=== PATIENT | female | born 1995 | race Caucasian/White ===

== ENCOUNTER 2017-05-08 13:54 | Inpatient (IN) | payer OTHER ==
[~2017-05-08] VITALS: Ht 157.5 cm; Wt 98.0 kg
[2017-05-08] VITALS (16 sets, daily range): BP systolic 122–166; BP diastolic 63–98
[~2017-05-08 13:54] MED LIST: ASPI1TAB PO; GLYB3TA PO; METF10004 PO; PRENTAB55 PO; ZOLO25TA PO
[2017-05-08 15:21] LABS: MEAN CORPUSCULAR HEMOGLOBIN 25.5 pg (27.0-33.0); MEAN CORPUSCULAR HGB CONC 32.1 g/dl (32.0-36.5); MEAN CORPUSCULAR VOLUME 79.5 fl (80.0-96.0); PLATELET COUNT, AUTOMATED 253 10^3/uL (150-450); RED CELL DISTRIBUTION WIDTH 14.1 % (11.5-14.5); WHITE BLOOD COUNT 11.4 10^3/uL (4.0-10.0)
[2017-05-08 15:50] LABS: ALT/SGPT 15 U/L (12-78); AST/SGOT 16 U/L (7-37); BILIRUBIN,TOTAL 0.5 MG/DL (0.2-1.0); CREATININE FOR GFR 0.41 MG/DL (0.55-1.02); GLOMERULAR FILTRATION RATE > 60.0 (>60); URIC ACID 5.6 MG/DL (2.6-6.0)
[2017-05-08] MEDS ORDERED: LR 1,000 ML IV SCH ×2 (16:50→21:45)
[2017-05-08] MEDS ORDERED: BICITRA 30ML SOLN UDC PO ONE (17:00)
--- NOTE | 2017-05-08 17:49 | HPEPDOC ---
Obstetrical History & Physical General Date of Admission May 08, 2017 at 16:48 History of Present Illness 21 y/o at 38+3 per prior facility DOMINGO determination with less urine outout and seeing flashes in vision, has a h/o pre-e with first baby at 36 weeks, came in to be ruled out. No MELTON. No LOF/VB/ctx's. Pos FM. BP's were intermitently normal but also 141/95, 149/91, 142/98. Her CBC and Pre-E pnl were nl but her Pr/Cr was 0.42. Prob list: -T2DM, pt state blood sugars have been WNL the last 2 weeks, is on glyburide and metformin 1000 bid, however a known h/o the last 1-2 months of not bringing her glucose log to appt's (noncompliance). 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 No deficits since and had a nl echo this in , report in chart. Also nl echo other than mild ductal restriction. report in chart. Uses ABX for endocarditis prophylaxis with procedures. No isues with first or or postop period. -Severe scoliosis c rods in back in 2003-unable to have a spinal or epidural anesthesia, Had GETA with in 2016. -H/O Pre-E at 36 weeks with first preg in 2016 -Depression well controlled on Zoloft -CHTN although BP's have been nl in until today. 24 hr UP showed a nl Cr clearance of 139 ml/min 27SEP 24 hr UP 183 mg, nl Pre-E serum labs. 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: No pertinent history Past Medical History Medical History see Prob list above Surgical History: section, Tonsilectomy, Other (Back surgery 2003, coarct repair 2003) Family History Significant Family History: No pertinent family hx Social History Social history denies issues Marital Status: Family situation: Spouse/partner home Psychosocial History: No pertinent psych hx * Smoker: non-smoker Alcohol: Denies Drugs: denies Abuse Violence Screening Have you been hit/kicked/slapp: No Have you been sexually assault: No Imunizations Tdap status: current Allergies Coded Allergies: No Known Allergies (Unverified , 05/05/17) Medications Scheduled Aspirin (Aspirin 81) 81 Mg Tab, 162 MG PO DAILY Glyburide (Glyburide Micronized) 3 Mg Tab, 3 MG PO DAILY Metformin Hydrochloride (Metformin HCl) 1,000 Mg Tab, 1,000 MG PO BID Multivitamins/ ( 19) 1 Tab Tab, 1 TAB PO DAILY Sertraline Hcl (Zoloft) 25 Mg Tab, 25 MG PO DAILY Physical Examination Physical Examination GENERAL: Alert and oriented times three. BREAST: . ABDOMEN: Gravid and non-tender to touch. FETUS: Is vertex (VTX) by sterile vaginal examination (SVE), Cx L/C. NST Cat 1 reassuring, irreg ctx's. HEART RATE: Regular rate and rhythm. LUNGS: Clear to auscultation (CTA). EXTREMITIES: No edema. No clonus. Vital Signs/I&O Vital Signs Date Time Temp Pulse Resp B/P (MAP) Pulse Ox O2 Delivery O2 Flow Rate FiO2 05/08/17 14:10 98.7 18 141/95 (110) Room Air Laboratory Data 24H LABS Laboratory Tests 2 05/08/17 15:13: Nucleated Red Blood Cells % (auto) 0.0, Glomerular Filtration Rate > 60.0, Creatinine 0.41L, Aspartate Amino Transf (AST/SGOT) 16, Alanine Aminotransferase (ALT/SGPT) 15, Lactate Dehydrogenase 141, Total Bilirubin 0.5, Uric Acid 5.6 05/08/17 15:26: Urine Random Creatinine 91.8, Urine Random Total Protein 38.4H CBC/BMP Laboratory Tests 05/08/17 15:13 Red Blood Count 4.98, Mean Corpuscular Volume 79.5 L, Mean Corpuscular Hemoglobin 25.5 L, Mean Corpuscular Hemoglobin Concent 32.1, Red Cell Distribution Width 14.1, Aspartate Amino Transf (AST/SGOT) 16, Alanine Aminotransferase (ALT/SGPT) 15, Lactate Dehydrogenase 141, Total Bilirubin 0.5, Uric Acid 5.6 Urine Culture: Other (neg UA only in late SEP{, no urine Cx on chart) Pertinent Laboratoy Data Blood Type: O+ RBC Antibody Screen: Negative HIV: Negative Hepatitis B: Negative Hepatitis C: Negative Rapid Plasma Reagin: Immune Rubella: Unknown (value of 10.5 only in [facility] records, repeated with admission ) Varicella: Immune Chlamydia/Gonorrhea: Negative Group B Streptococcus: Unknown Quad Screen Test: Declined Cystic Fibrosis: Declined Anatomy Ultrasound Ultrasound Date: Jan 28, 2017 Placenta Location: Anterior Normal Anatomy: Yes (but inad eval of spine) Placenta Previa: No Other Ultrasounds 3OCT nl limited anatomy and 47%ile Was noncompliant with scheduling the APR th scan Vaginal Examination Dilation: None Effacement: 0-30% Station: -5 Cervical Consistency: Firm Cervical Position: Posterior Presentation: Cephalic presentation Assessment Variability: Moderate Accelerations: Positive Decelerations: None Tocometer Contractions: Yes Frequency: irregular Duration: less than 60 seconds Assessment/Plan Assessment 21 y/o at 38+3 with pre-eclampsia without severe features. Prob list: -T2DM, pt state blood sugars have been WNL the last 2 weeks, is on glyburide and metformin 1000 bid, however a known h/o the last 1-2 months of not bringing her glucose log to appt's (noncompliance). Ophtho exam nl in NOV, TSH nl 25SEP (2.34), 25SEP A1C 6.18%, A1C 7.3%. Plan on postop QID blood suagrs while admitted. -Congenital heart defect (coarct of aorta) s/p corrective surgery in 2003 age 7. No deficits since and had a nl echo this in , report in chart. Also nl echo other than mild ductal restriction. report in chart. Uses ABX for endocarditis prophylaxis with procedures. No isues with first or or postop period. SBE prophy with Ancef -Severe scoliosis c rods in back in 2003-unable to have a spinal or epidural anesthesia, Had GETA with in 2016. GETA, d/w Dr Ramos already this evening. -H/O Pre-E at 36 weeks with first preg in 2016. Delivery should suffice, if develops severe fetures, will use Mag Sulfate -Depression well controlled on Zoloft. -CHTN although BP's have been nl in until today. 24 hr UP showed a nl Cr clearance of 139 ml/min 27SEP 24 hr UP 183 mg, nl Pre-E serum labs. -Transfer to us at 24 weeks -Last baby ASA yesterday, will notify anesthesia of potential PLT issue -Prior in 2016 (GETA due to rods in back). ERCS this evening at ~ 2000 after anesthesia is available (in a case currently) Plan Admit and orient. Counseled and consented Group B Streptococcus (GBS) unk Labs and intravenous (IV) per unit protocol. Will need a checm7, rubella and HBSAG for reporting purposes and to be thorough ([facility] paperwork not perfectly clear) Judicious fluid mgmtr due to dx of Pre-E and also coarct repair Dr Orona to assist Sessions MD SESSIONS,ARSLAN Feldman MD May 08, 2017 17:49
[2017-05-08 18:09] LABS: ANION GAP 11 MEQ/L (8-16); BLOOD UREA NITROGEN 10 MG/DL (7-18); CALCIUM LEVEL 8.9 MG/DL (8.5-10.1); CARBON DIOXIDE LEVEL 21 MEQ/L (21-32); CHLORIDE LEVEL 106 MEQ/L (98-107); CREATININE FOR GFR 0.42 MG/DL (0.55-1.02); GLOMERULAR FILTRATION RATE > 60.0 (>60); GLUCOSE, FASTING 58 MG/DL (70-105); POTASSIUM SERUM 4.1 MEQ/L (3.5-5.1); SODIUM LEVEL 138 MEQ/L (136-145)
[2017-05-08] MEDS ORDERED: PROPOFOL 200 MG/20 ML VIAL As Ordered ONE ×3 (19:51→20:52)
[2017-05-08] MEDS ORDERED: LIDOCAINE 2% INJ 100 MG/5 ML SDV (FOR ANES.) As Ordered ONE (19:52)
[2017-05-08] MEDS ORDERED: OXYTOCIN INJ 10 UNITS/ML VIAL (J2590) As Ordered ONE (19:53)
[2017-05-08] MEDS ORDERED: MORPHINE PRES-FREE INJ 10 MG/10 ML VIAL (J2274) As Ordered ONE (19:56)
[2017-05-08] MEDS ORDERED: ONDANSETRON 4MG/2ML VIAL (J2405) As Ordered ONE (20:38)
[2017-05-08] MEDS ORDERED: MEASLES,MUMPS,RUBELLA VACCINE INJ (MMR-II) (90707) SC SCH (21:30)
[2017-05-08] MEDS ORDERED: RHOGAM 300 MCG (1500 IU) INJ (J2790) IM SCH (21:30)
[2017-05-08] MEDS: fentaNYL 100 MCG/2 ML INJECTION (J3010) IV PRN ×2 (21:42→22:00)
[2017-05-08] MEDS ORDERED: PERCOCET 5MG/325MG TAB PO PRN (21:45)
[2017-05-08] MEDS ORDERED: MEPERIDINE INJ 25 MG/ML VIAL (J2175) IV PRN (21:45)
[2017-05-08] MEDS ORDERED: HYDROmorphone HCL 1 MG/ML SYRINGE (J1170) IV PRN (21:45)
[2017-05-08] MEDS ORDERED: ONDANSETRON 4MG/2ML VIAL (J2405) IV PRN (21:45)
[2017-05-08] MEDS ORDERED: NALBUPHINE HCL 10 MG/ML AMP (J2300) IV PRN (21:45)
[2017-05-08] MEDS ORDERED: diphenhydrAMINE INJ 50MG/ML VIAL (J1200) IV PRN (21:45)
[2017-05-08] MEDS: KETOROLAC 30 MG/ML VIAL (J1885) IV SCH (23:04)
[2017-05-08] MEDS: LR 1,000 ML IV SCH (23:04)
[2017-05-09 00:05] VITALS: BP 137/94
[2017-05-09 01:05] VITALS: BP 144/93
[2017-05-09] MEDS: PERCOCET 5MG/325MG TAB PO PRN ×3 (01:56→21:58)
[2017-05-09] MEDS: KETOROLAC 30 MG/ML VIAL (J1885) IV SCH ×3 (04:34→16:52)
[2017-05-09 05:48] VITALS: BP 138/76
[2017-05-09 07:03] LABS: MEAN CORPUSCULAR HEMOGLOBIN 25.2 pg (27.0-33.0); MEAN CORPUSCULAR HGB CONC 31.5 g/dl (32.0-36.5); MEAN CORPUSCULAR VOLUME 80.1 fl (80.0-96.0); PLATELET COUNT, AUTOMATED 208 10^3/uL (150-450); RED CELL DISTRIBUTION WIDTH 14.2 % (11.5-14.5)
--- NOTE | 2017-05-09 07:52 | IPNPDOC ---
Text Note Date of Service The patient was seen on 05/09/17. NOTE POD1 prog note s/p yest AM States feeling well, no complaints. No heavy VB. Pain controlled. Ambulatory already. Baby in NICU due to oxygenation issues. VSSAF CTAB RRR Ut at U-2, firm Ext no [employer] CDI UO adeq This AM HCT 32.7 a/p: Doing well. D/C valdivia now and routine postop care. Likely d/c not until WED due to BS monitoring, visiting the NICU, etc Sessions MD MILLAN,Rodrigo, I+O VS, Rodrigo, I+O Laboratory Tests 05/08/17 15:13 Red Blood Count 4.98, Mean Corpuscular Volume 79.5 L, Mean Corpuscular Hemoglobin 25.5 L, Mean Corpuscular Hemoglobin Concent 32.1, Red Cell Distribution Width 14.1, Calcium Level 8.9, Aspartate Amino Transf (AST/SGOT) 16 , Alanine Aminotransferase (ALT/SGPT) 15, Lactate Dehydrogenase 141, Total Bilirubin 0.5, Uric Acid 5.6 05/09/17 06:46 Red Blood Count 4.08, Mean Corpuscular Volume 80.1, Mean Corpuscular Hemoglobin 25.2 L, Mean Corpuscular Hemoglobin Concent 31.5 L, Red Cell Distribution Width 14.2 Vital Signs Date Time Temp Pulse Resp B/P (MAP) Pulse Ox O2 Delivery O2 Flow Rate FiO2 05/09/17 06:03 16 05/09/17 05:48 96.4 87 138/76 (96) 95 Room Air 05/08/17 22:05 2 SESSIONS,ARSLAN Feldman MD May 09, 2017 07:52
[2017-05-09] MEDS: DOCUSATE SODIUM 100 MG CAP PO SCH ×2 (08:42→21:57)
[2017-05-09] MEDS: PRENATAL VITAMINS CHEWABLE TABLET PO SCH (08:42)
[2017-05-09] MEDS: metFORMIN (GLUCOPHAGE) 1000 MG TABLET PO SCH ×2 (08:42→16:52)
[2017-05-09] MEDS ORDERED: PRENATAL VITAMINS CHEWABLE TABLET PO SCH (09:00)
[2017-05-09 10:00] VITALS: BP 136/76
[2017-05-09 14:00] VITALS: BP 146/89
[2017-05-09] MEDS: SIMETHICONE 80 MG CHEW TAB PO PRN (14:53)
[2017-05-09 18:00] VITALS: BP 144/90
[2017-05-10] MEDS: LR 1,000 ML IV SCH ×2 (00:06→13:26)
[2017-05-10] MEDS: IBUPROFEN 800 MG TAB PO SCH ×3 (00:10→15:47)
[2017-05-10] MEDS: PERCOCET 5MG/325MG TAB PO PRN ×2 (02:20→15:48)
[2017-05-10] MEDS: SIMETHICONE 80 MG CHEW TAB PO PRN (02:20)
[2017-05-10 06:00] VITALS: BP 136/79
--- NOTE | 2017-05-10 08:08 | IPNPDOC ---
Text Note Date of Service The patient was seen on 05/10/17. NOTE POD2 prog note s/p 2 nights ago with T2DM States feeling well, no complaints. No heavy VB. Pain controlled. Ambulatory. Baby in NICU due to oxygenation issues. Blood sugars Yest: Fasting low 100's (cannot find it in the record, memory) PPB 219 (after this significantly adjusted her diet) PPL: 132 PPD: 97 Today: Fasting 124 VSSAF CTAB RRR Ut at U-2, firm Ext no [employer] CDI UO adeq Yest AM HCT 32.7 a/p: Doing somewhat better with glycemic control. Routine postop care. Likely d/c tomorrow due to BS monitoring. Matcher Offbearer to see her today and discuss appropriate diet, discharge planning. Sessions VS,Rodrigo, I+O VSRodrigo, I+O Vital Signs Date Time Temp Pulse Resp B/P (MAP) Pulse Ox O2 Delivery O2 Flow Rate FiO2 05/10/17 06:00 98.4 77 18 136/79 (98) 05/10/17 02:20 Room Air 05/09/17 18:00 98 05/08/17 22:05 2 SESSIONS,ARSLAN Feldman MD May 10, 2017 08:07
[2017-05-10] MEDS: DOCUSATE SODIUM 100 MG CAP PO SCH (09:04)
[2017-05-10] MEDS: PRENATAL VITAMINS CHEWABLE TABLET PO SCH (09:05)
[2017-05-10] MEDS: metFORMIN (GLUCOPHAGE) 1000 MG TABLET PO SCH ×2 (09:05→17:17)
[2017-05-10] MEDS: SERTRALINE HCL 25 MG TABLET PO SCH (11:55)
--- NOTE | 2017-05-10 15:49 | RO ---
DATE OF PROCEDURE: 05/08/2017 PREOPERATIVE DIAGNOSES: Pre-eclampsia without severe features, prior , 38 weeks 4 days. POSTOPERATIVE DIAGNOSES: Pre-eclampsia without severe features, prior , 38 weeks 4 days. PROCEDURE: SURGEON: Hayder Gallagher MD CATCH BASIN CLEANER: Dr. Dru Orona ANESTHESIA: General endotracheal after failed spinal times three. ESTIMATED BLOOD LOSS: 500 mL. DRAINS: 200 mL in the Yin catheter at the end of the procedure. FLUIDS REPLACED: 1000 mL of D5 lactated Ringer's. PREOPERATIVE ANTIBIOTICS: Ancef 2 grams IV. FINDINGS: Prefascial scar tissue significant with very little intraperitoneal scar tissue, 2.5 minutes from skin to baby delivery, female, 3334 grams, 7 pounds 6 ounces, scores 5, 8, 8, 9 with clear fluid. INDICATION: Patient came to triage stating that she was urinating much less than she was used to and also seeing significant bright spots in her vision. She had a history of pre-eclampsia in her previous at 36 weeks and delivery. Her plan was to undergo elective repeat delivery later this week. She was noted to be intermittently hypertensive (mild range), and a full workup was performed, including nonstress tests, serial blood pressures, and a urine protein to creatinine ratio with a complete blood count (CBC) and a pre-eclampsia profile. All was normal other than her protein to creatinine ratio, which was noted to be 0.42. With the intermittent blood pressure issues and the significant amount of protein in her urine and her symptoms, she was diagnosed with pre-eclampsia without severe features and delivery was indicated. Informed consent was obtained, and anesthesia was told about our plan for general endotracheal as due to her history of scoliosis repair with Dodd rods, her first delivery required general endotracheal and this is what she was expecting. Dr. Ramos very much wanted to try a spinal anesthetic, thus avoiding the risks of general endotracheal anesthesia in term , and the patient agreed. DESCRIPTION OF THE OPERATION: Patient was taken to the operating room with two IVs in place, and a spinal attempt was made times three, never successful. It was then decided to undergo a general endotracheal anesthesia via GlideScope; please see their notes for all details. The patient was Yin catheterized and prepped and draped, completely awake. Dr. Orona and I were ready to begin the rapid sequence delivery as soon as anesthesia confirmed the appropriate placement of the endotracheal airway. This was done without difficulty and as soon as they confirmed the presence of the appropriate placement, a Pfannenstiel skin incision was carried down over her prior incision to the layer of the fascia, which was nicked in the midline; and a fascial rip technique bilaterally created an adequate fascial window. Gretchen clamps were placed superiorly and inferiorly. The underlying rectus muscles were quickly dissected off sharply. The rectus muscles were . The peritoneum was breeched with the surgeon's digit, and this revealed no significant intraperitoneal scar tissue. Bladder blade was quickly placed and a bladder flap was easily created, and a low transverse uterine incision with clear fluid was performed. Incision to baby delivery was approximately 2-1/2 minutes. The was easily delivered through the incision after flexing the head and with fundal pressure. was noted to be slightly sedated, and the waiting intensive care unit (NICU) team, including Dr. Kamara, took over the care of the baby. Cord blood was obtained. The uterus was massaged, Pitocin was started, and the placenta was delivered under traction. The uterus was delivered through the incision, wrapped in warm sponge, and two dry sponges then used to clear the uterine cavity of all clots, debris, and membranes. A running suture from left to right was performed with #0 Vicryl in locked fashion without difficulty, and hemostasis was noted. #0 Monocryl was then used to imbricate the incision with good effect. The fallopian tubes and ovaries were normal. Uterus was then returned to its anatomical state and, once again, hemostasis was confirmed using a large Rich for the skin and a bladder blade for the vesicouterine peritoneum. The peritoneum was closed with a running #2-0 Vicryl, the rectus bellies were inspected and found to be hemostatic, and the fascia was then closed with a running #0 Vicryl from left to right. The subcutaneous tissue was copiously irrigated, made to be hemostatic, and closed with a #2-0 running Vicryl. The skin was closed with a #4-0 Monocryl in subcuticular fashion from left to right. Steri-Strips were placed over the incision. A pressure dressing was then placed over the incision. The patient's legs were frogged. The uterus was at U-2 and firm on bimanual exam, and a small amount of clots and debris was removed from the vagina and cervix. All counts were correct times three, including sponge, needle, and instruments.
[2017-05-10 19:23] VITALS: BP 160/94
[2017-05-10 19:45] VITALS: BP 160/92
[2017-05-10 22:10] VITALS: BP 182/88
[2017-05-11] VITALS (7 sets, daily range): BP systolic 140–176; BP diastolic 78–96
[2017-05-11] MEDS: DOCUSATE SODIUM 100 MG CAP PO SCH ×3 (00:21→21:00)
[2017-05-11] MEDS: PERCOCET 5MG/325MG TAB PO PRN ×2 (00:21→07:46)
[2017-05-11] MEDS: IBUPROFEN 800 MG TAB PO SCH ×3 (00:22→16:11)
[2017-05-11] MEDS: LR 1,000 ML IV SCH ×2 (02:46→16:05)
[2017-05-11] MEDS: PRENATAL VITAMINS CHEWABLE TABLET PO SCH (07:46)
[2017-05-11] MEDS: metFORMIN (GLUCOPHAGE) 1000 MG TABLET PO SCH ×2 (07:47→18:08)
[2017-05-11] MEDS: SERTRALINE HCL 25 MG TABLET PO SCH (07:47)
--- NOTE | 2017-05-11 08:48 | IPNPDOC ---
Text Note Date of Service The patient was seen on 05/11/17. NOTE POD3 prog note s/p 2 nights ago with T2DM States feeling well, no complaints. No heavy VB. Pain controlled. Ambulatory. Baby in NICU and doing well. Pumping/breast feeding. Blood sugars Yest: Fasting 124 PPB 125 PPL: 113 PPD: 108 Fasting today: 100 VSSAF CTAB RRR Ut at U-3, firm Ext no [employer]CE Inc CDI a/p: Doing better with glycemic control after airframe technician consultation yesterday. Will add Labetalol 200 BID and cont routine postop care. Likely d/ c tomorrow due to BP/BS monitoring. Sessions VS,Rodrigo, I+O VSRodrigo, I+O Vital Signs Date Time Temp Pulse Resp B/P (MAP) Pulse Ox O2 Delivery O2 Flow Rate FiO2 05/11/17 07:46 16 Room Air 05/11/17 05:59 98.7 88 152/88 (109) 99 05/08/17 22:05 2 SESSIONS,ARSLAN Feldman MD May 11, 2017 08:48
[2017-05-11] MEDS: LABETALOL 200 MG TAB PO SCH ×2 (09:13→21:19)
[2017-05-12] MEDS: IBUPROFEN 800 MG TAB PO SCH ×2 (00:07→08:17)
[2017-05-12 02:00] VITALS: BP 138/82
[2017-05-12] MEDS: PERCOCET 5MG/325MG TAB PO PRN (02:59)
[2017-05-12] MEDS: LR 1,000 ML IV SCH (05:26)
[2017-05-12 06:00] VITALS: BP 138/88
--- NOTE | 2017-05-12 06:27 | IPNPDOC ---
Text Note Date of Service The patient was seen on 05/12/17. NOTE POD4 prog note s/p , with T2DM and PP BP issues States feeling well, no complaints. No heavy VB. Pain controlled. Ambulatory. Baby in NICU and doing well. Pumping/breast feeding. Blood sugars Yest: Fasting 100 PPB 127 PPL: 127 PPD: 125 Fasting today: 97 VSSAF, 1800 BP severe range but repeated immediately with a manual cuff and mild range only, nl or mild range throughout the night/AM CTAB RRR Ut at U-3, firm Ext no [employer]CE [employer] CDI a/p: Doing better with glycemic control after management rep consultation and Labetalol 200 BID working well for her. Stable for d/c. Sessions VS,Rodrigo, I+O VSRodrigo, I+O Vital Signs Date Time Temp Pulse Resp B/P (MAP) Pulse Ox O2 Delivery O2 Flow Rate FiO2 05/12/17 06:00 98.7 79 17 138/88 (105) 17 Room Air 05/08/17 22:05 2 SESSIONS,ARSLAN Feldman MD May 12, 2017 06:27
--- NOTE | 2017-05-12 06:33 | DS.PDOC ---
Discharge Summary General Date of Admission May 08, 2017 at 16:48 Date of Discharge [id number] Discharge Summary Discharge Summary Admission Diagnosis: Pre-Eclampsia without severe features and prior Type 2 Diabetes Discharge Diagnosis: s/p uncomplicated delivery, see operative note Condition: stable Meds on discharge: Motrin, Lanolin, Percocet, Colace, Nor QD, Labetalol 200 mg BID Hospital Course: Pt is a 21 y/o female admitted with new diagnosis of Pre- Eclampsia based on BP's and proteinuria. Uncomplicated . Please see operative note for details. to NICU for respiratory issues. On POD#2, saw a screen printer helper and had a vast improvement in her blood sugars thereafter. On POD#3, the pt had severe range BP's and Labetalol was added. On POD#4, the pt was tolerating reg diet, ambulating, pain was well controlled, and had minimal lochia and stable BP's. She was desirous of discharge and was discharged home with follow up in 1-2 and 6-8wks in OB clinic. Home recommendations: Nothing in vagina for 6 weeks, no bathing for 4 weeks, no driving for 2 weeks. Vital Signs/I&Os Vital Signs Date Time Temp Pulse Resp B/P (MAP) Pulse Ox O2 Delivery O2 Flow Rate FiO2 05/12/17 06:00 98.7 79 17 138/88 (105) 17 Room Air 05/08/17 22:05 2 Laboratory Data Labs 24H Laboratory Tests 2 05/11/17 10:46: Bedside Glucose (Misc Panel) 127H 05/11/17 15:17: Bedside Glucose (Misc Panel) 127H 05/11/17 20:06: Bedside Glucose (Misc Panel) 125H 05/12/17 06:02: Bedside Glucose (Misc Panel) 87 FSBS Laboratory Tests Test 05/11/17 10:46 05/11/17 15:17 05/11/17 20:06 05/12/17 06:02 Range/Units Bedside Glucose (Misc Panel) 127 127 125 87 70-105 MG/DL Discharge Medications Scheduled Aspirin (Aspirin 81) 81 Mg Tab, 162 MG PO DAILY, (Reported) Glyburide (Glyburide Micronized) 3 Mg Tab, 3 MG PO DAILY, (Reported) Metformin Hydrochloride (Metformin HCl) 1,000 Mg Tab, 1,000 MG PO BID, (Reported ) Multivitamins/ ( 19) 1 Tab Tab, 1 TAB PO DAILY, (Reported) Sertraline Hcl (Zoloft) 25 Mg Tab, 25 MG PO DAILY, (Reported) Allergies Coded Allergies: No Known Allergies (Unverified , 05/05/17) SESSIONS,ARSLAN Feldman MD May 12, 2017 06:33
[2017-05-12] MEDS: metFORMIN (GLUCOPHAGE) 1000 MG TABLET PO SCH (07:28)
[2017-05-12] MEDS: PRENATAL VITAMINS CHEWABLE TABLET PO SCH (08:16)
[2017-05-12 08:17] VITALS: BP 138/90
[2017-05-12] MEDS: LABETALOL 200 MG TAB PO SCH (08:17)
[2017-05-12] MEDS: SERTRALINE HCL 25 MG TABLET PO SCH (08:17)
[2017-05-12] MEDS: DOCUSATE SODIUM 100 MG CAP PO SCH (08:17)
[2017-05-12] MEDS ORDERED: COLA100C5 PO (09:07)
[2017-05-12] MEDS ORDERED: MOTR200T44 PO (09:07)
[2017-05-12] MEDS ORDERED: SIME180C PO (09:07)
[2017-05-12] MEDS ORDERED: PERCOCET PO (09:07)
== END 2017-05-12 10:40 | disposition home or self-care (01) | DRG 766 ==
LOC: M LDO 13:54 → M LDI 16:48 → M OBS 22:23
PROVIDERS: ADMIT Obstetrics & Gynecology; ATTEND Obstetrics & Gynecology
PROC: 10D00Z1 Extraction of Products of Conception, Low, Open Approach (ICD-10-PCS; principal; 2017-05-08 21:04)
DX: O11.4 Pre-existing hypertension with pre-eclampsia, complicating childbirth (principal); O24.12 Pre-existing type 2 diabetes mellitus, in childbirth; E11.9 Type 2 diabetes mellitus without complications; Z3A.38 38 weeks gestation of pregnancy; O34.211 Maternal care for low transverse scar from previous cesarean delivery; F32.9 Major depressive disorder, single episode, unspecified; O10.02 Pre-existing essential hypertension complicating childbirth; O99.344 Other mental disorders complicating childbirth; Z87.74 Personal history of (corrected) congenital malformations of heart and circulatory system; Z37.0 Single live birth; Z79.84 Long term (current) use of oral hypoglycemic drugs; Z96.698 Presence of other orthopedic joint implants

== ENCOUNTER 2017-05-14 22:35 | Emergency (ER) | payer OTHER ==
[~2017-05-14] VITALS: Ht 157.5 cm; Wt 96.8 kg
[~2017-05-14 22:35] MED LIST changes: +COLA100C5 PO; +MOTR200T44 PO; +PERCOCET PO; +SIME180C PO
[2017-05-14] MEDS ORDERED: LABE20TAB PO (22:54)
[2017-05-14] MEDS ORDERED: LABETALOL HCL 100 MG/20 ML VIAL IV STA (23:25)
--- NOTE | 2017-05-15 | REPUSA ---
CT of the head Clinical history: Headache. Technique: Multiple axial CT images were obtained through the head without administration of contrast . Findings: The ventricles and sulci are symmetric bilaterally. There is no evidence of acute hemorrhag e or infarct. There is no midline shift, mass effect, or extra-axial fluid collection. The osseous st ructures are unremarkable. The visualized paranasal sinuses and mastoid air cells are clear. Impression: Negative study.
[2017-05-15 00:12] LABS: BASO # 0.1 10^3/uL (0.0-0.2); BASO % 0.5 % (0.0-1.0); EOS # 0.3 10^3/uL (0.0-0.50); EOS % 2.9 % (0.0-3.0); IMMATURE GRANULOCYTE % 0.7 % (0-0); LYMPH % 31.5 % (24.0-44.0); MEAN CORPUSCULAR HEMOGLOBIN 25.5 pg (27.0-33.0); MEAN CORPUSCULAR HGB CONC 30.9 g/dl (32.0-36.5); MEAN CORPUSCULAR VOLUME 82.4 fl (80.0-96.0); MONO # 0.6 10^3/uL (0.0-0.8); MONO % 6.2 % (0.0-5.0); NEUTROPHILS # 5.6 10^3/uL (1.8-7.7); NEUTROPHILS % 58.2 % (36.0-66.0); PLATELET COUNT, AUTOMATED 291 10^3/uL (150-450); RED CELL DISTRIBUTION WIDTH 14.8 % (11.5-14.5); WHITE BLOOD COUNT 9.7 10^3/uL (4.0-10.0)
[2017-05-15 00:17] VITALS: BP 210/99
[2017-05-15 00:32] LABS: ALBUMIN 2.5 GM/DL (3.2-5.2); ALBUMIN/GLOBULIN RATIO 0.71 (1.00-1.93); ALKALINE PHOSPHATASE 100 U/L (45-117); ALT/SGPT 23 U/L (12-78); ANION GAP 9 MEQ/L (8-16); AST/SGOT 17 U/L (7-37); BILIRUBIN,DIRECT 0.2 MG/DL (0.0-0.2); BILIRUBIN,TOTAL 0.4 MG/DL (0.2-1.0); BLOOD UREA NITROGEN 19 MG/DL (7-18); CALCIUM LEVEL 8.3 MG/DL (8.5-10.1); CARBON DIOXIDE LEVEL 26 MEQ/L (21-32); CHLORIDE LEVEL 107 MEQ/L (98-107); CREATININE FOR GFR 0.53 MG/DL (0.55-1.02); GLOMERULAR FILTRATION RATE > 60.0 (>60); GLUCOSE, FASTING 113 MG/DL (70-105); POTASSIUM SERUM 3.9 MEQ/L (3.5-5.1); SODIUM LEVEL 142 MEQ/L (136-145)
[2017-05-15 00:33] LABS: INR 0.91
[2017-05-15 01:43] VITALS: BP 167/80
[2017-05-15] MEDS ORDERED: IBUP1TAB7 PO (01:45)
[2017-05-15] MEDS ORDERED: MAG Sulf (OBGYN) 20GM/500ML 20,000 MG in APPROPRIATE DILUENT 1 EA IV SCH (02:16)
[2017-05-15] MEDS ORDERED: LABETALOL HCL 100 MG/20 ML VIAL IV ONE (02:30)
[2017-05-15] MEDS ORDERED: MAG Sulf (L&D) 4 GM/100 ML 4 GM in APPROPRIATE DILUENT 1 EA IV ONE (02:30)
--- NOTE | 2017-05-15 12:56 | REP ---
CHEST, TWO VIEWS: Two views of the chest are performed. There are no prior studies for comparisons. There is no evidence of acute infiltrate or pulmonary edema. There is mild cardiomegaly. Dodd rods are seen along the thoracic spine. There is curvature of the thoracic spine convex to the left. IMPRESSION: No acute infiltrate. Mild cardiomegaly. Signed by Hayder Chaves MD 05/15/2017 05:36 P
--- NOTE | 2017-05-15 21:39 | ECGEPIP ---
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
== END 2017-05-15 01:29 | disposition other institution (70) ==
LOC: M ED 22:35 → UNDOADMIN 05-15 01:29 → M ED INP 05-15 01:29 → M ED 05-15 01:29 → UNDODISIN 05-15 01:49
DX: O14.95 Unspecified pre-eclampsia, complicating the puerperium (principal); E11.9 Type 2 diabetes mellitus without complications; Z87.891 Personal history of nicotine dependence; Z79.84 Long term (current) use of oral hypoglycemic drugs; Z79.899 Other long term (current) drug therapy; Z98.890 Other specified postprocedural states

== ENCOUNTER 2017-05-15 02:00 | Inpatient (IN) | payer OTHER ==
[2017-05-15] VITALS (43 sets, daily range): BP systolic 102–192; BP diastolic 52–105
[~2017-05-15] VITALS: Ht 157.5 cm; Wt 90.0 kg
[~2017-05-15 02:00] MED LIST changes: +IBUP1TAB7 PO; +LABE20TAB PO
[2017-05-15] MEDS ORDERED: LABETALOL HCL 100 MG/20 ML VIAL As Ordered ONE (02:29)
[2017-05-15] MEDS ORDERED: MAGNESIUM *L&D* 4 GM/100 ML BAG (40MG/ML) (J3475) As Ordered ONE (02:47)
[2017-05-15] MEDS ORDERED: MAGNESIUM SULFATE 4% INJ 20GM/500ML (40MG/ML) (J3475) As Ordered ONE (02:48)
[2017-05-15] MEDS ORDERED: LABETALOL HCL 100 MG/20 ML VIAL IV SCH (03:00)
[2017-05-15] MEDS ORDERED: MAG Sulf (L&D) 4 GM/100 ML 4 GM in APPROPRIATE DILUENT 1 EA IV ONE (03:15)
[2017-05-15] MEDS ORDERED: ACETAMINOPHEN 500 MG TAB As Ordered ONE (03:37)
[2017-05-15] MEDS: MAG Sulf (OBGYN) 20GM/500ML 20,000 MG in APPROPRIATE DILUENT 1 EA IV SCH ×2 (04:00→14:44)
[2017-05-15 06:57] LABS: MEAN CORPUSCULAR HEMOGLOBIN 25.5 pg (27.0-33.0); MEAN CORPUSCULAR HGB CONC 31.5 g/dl (32.0-36.5); PLATELET COUNT, AUTOMATED 289 10^3/uL (150-450); RED CELL DISTRIBUTION WIDTH 14.7 % (11.5-14.5)
[2017-05-15 07:22] LABS: ANION GAP 8 MEQ/L (8-16); BLOOD UREA NITROGEN 12 MG/DL (7-18); CALCIUM LEVEL 8.4 MG/DL (8.5-10.1); CARBON DIOXIDE LEVEL 25 MEQ/L (21-32); CHLORIDE LEVEL 109 MEQ/L (98-107); CREATININE FOR GFR 0.42 MG/DL (0.55-1.02); GLOMERULAR FILTRATION RATE > 60.0 (>60); GLUCOSE, FASTING 108 MG/DL (70-105); MAGNESIUM LEVEL 3.7 MG/DL (1.8-2.4); POTASSIUM SERUM 3.7 MEQ/L (3.5-5.1); SODIUM LEVEL 142 MEQ/L (136-145)
[2017-05-15] MEDS ORDERED: LR 1,000 ML IV SCH (07:30)
[2017-05-15] MEDS: LABETALOL 200 MG TAB PO SCH ×2 (09:03→21:02)
[2017-05-15] MEDS ORDERED: ACETAMINOPHEN 325 MG TAB PO PRN (20:00)
[2017-05-15] MEDS ORDERED: IBUPROFEN 800 MG TAB PO PRN (20:00)
[2017-05-15] MEDS ORDERED: ACETAMINOPHEN 500 MG TAB PO PRN (20:15)
[2017-05-16] VITALS (10 sets, daily range): BP systolic 130–175; BP diastolic 73–92
[2017-05-16] MEDS: MAG Sulf (OBGYN) 20GM/500ML 20,000 MG in APPROPRIATE DILUENT 1 EA IV SCH (00:53)
[2017-05-16] MEDS ORDERED: DOCUSATE SODIUM 100 MG CAP PO PRN (06:45)
[2017-05-16] MEDS: PRENATAL VITAMINS CHEWABLE TABLET PO SCH (09:04)
[2017-05-16] MEDS: metFORMIN (GLUCOPHAGE) 1000 MG TABLET PO SCH ×2 (09:05→17:30)
[2017-05-16] MEDS: SERTRALINE HCL 25 MG TABLET PO SCH (09:05)
[2017-05-16] MEDS: LABETALOL 200 MG TAB PO SCH ×2 (09:05→21:00)
[2017-05-17] VITALS (9 sets, daily range): BP systolic 124–163; BP diastolic 74–90
[2017-05-17 07:05] LABS: MEAN CORPUSCULAR HEMOGLOBIN 25.6 pg (27.0-33.0); MEAN CORPUSCULAR VOLUME 82.7 fl (80.0-96.0); PLATELET COUNT, AUTOMATED 334 10^3/uL (150-450); RED CELL DISTRIBUTION WIDTH 14.6 % (11.5-14.5); WHITE BLOOD COUNT 8.3 10^3/uL (4.0-10.0)
[2017-05-17] MEDS: PRENATAL VITAMINS CHEWABLE TABLET PO SCH (09:15)
[2017-05-17] MEDS: NIFEdipine 30 MG XL TAB PO SCH (09:16)
[2017-05-17] MEDS: metFORMIN (GLUCOPHAGE) 1000 MG TABLET PO SCH ×2 (09:16→17:38)
--- NOTE | 2017-05-17 09:16 | IPNPDOC ---
Progress Note Date of Service The patient was seen on 05/17/17 at 09:11. Progress Note Progress Note Renée is a 21y/o [id number] s/p 24hr IV MgSO4 after readmission for Severe range BPs/HAs. She feels well today with no complaints. Baby is now with her out of NICU and she is breast feeding. Ambulating/voiding spontaneously/tolerating regular diet without problems. Explicitly denies headache/vision changes/CP/ SOB. Last night RN called me informing me of severe range bp right before giving patient her PM labetalol (BID dosing)- I had her call me back 30 min later with repeat bp and it was no longer severe range. Renée never had symptoms during that time. O: Severe range bp last night, currently mild range, afebrile Gen: A&Ox3, NAD ABD: soft, NTTP, ND, Fundus@U-3 Ext: 2+ BLE DP/PT, neg homans BLE Assessment: Renée is a 21y/o [id number] s/p 24hr IV MgSO4 after readmission for Severe range BPs/HAs. Still working to reduce bp's though no longer symptomatic. Has been on BID 200mg Labetalol but last night dosing changed to TID with addition of nifedipine this morning. No s/sx of worsening pre-eclampsia. Mild range bp's this morning. Plan: - Continue routine care, no discharge today secondary to elevated bp' s last night - Today will observe bp's after going to labetalol 200mg TID dosing in addition to Nifedipine XL 30mg qam - Continue Metformin 1000mg bid/zoloft 25mg/PNV - Encourage breast feeding and ambulation Dr. Sherrill Devi MD [place] VS, I&O, 24H, [facility] Vital Signs/I&O Vital Signs Date Time Temp Pulse Resp B/P (MAP) Pulse Ox O2 Delivery O2 Flow Rate FiO2 05/17/17 06:00 98.9 66 17 142/88 (106) 96 Room Air Laboratory Data 24H LABS Laboratory Tests 2 05/17/17 06:37: Nucleated Red Blood Cells % (auto) 0.0 CBC/BMP Laboratory Tests 05/17/17 06:37 Red Blood Count 4.10, Mean Corpuscular Volume 82.7, Mean Corpuscular Hemoglobin 25.6 L, Mean Corpuscular Hemoglobin Concent 31.0 L, Red Cell Distribution Width 14.6 H Sherrill Devi MD May 17, 2017 09:16
[2017-05-17] MEDS: LABETALOL 200 MG TAB PO SCH ×2 (09:18→17:38)
[2017-05-17] MEDS: SERTRALINE HCL 25 MG TABLET PO SCH (09:18)
[2017-05-18] MEDS: LABETALOL 200 MG TAB PO SCH ×2 (01:00→09:00)
[2017-05-18 02:00] VITALS: BP 150/85
[2017-05-18 02:40] VITALS: BP 149/81
[2017-05-18 06:00] VITALS: BP 138/72
[2017-05-18] MEDS: PRENATAL VITAMINS CHEWABLE TABLET PO SCH (08:48)
[2017-05-18] MEDS: metFORMIN (GLUCOPHAGE) 1000 MG TABLET PO SCH (08:49)
[2017-05-18] MEDS: NIFEdipine 30 MG XL TAB PO SCH (08:49)
[2017-05-18] MEDS: SERTRALINE HCL 25 MG TABLET PO SCH (08:50)
[2017-05-18 09:00] VITALS: BP 138/70
[2017-05-18] MEDS ORDERED: PRENTAB9 PO (12:27)
[2017-05-18] MEDS ORDERED: VALT500T PO (12:30)
[2017-05-18 14:00] VITALS: BP 139/87
[2017-05-18 17:48] VITALS: BP 142/87
--- NOTE | 2017-05-18 22:48 | DSES ---
DATE OF ADMISSION: DATE OF DISCHARGE: 05/18/2017 This lady had an admission diagnosis of previous section 05/10/2017 with preeclampsia with not severe range blood pressures. She also has a history of depression on Zoloft and type 2 diabetes on metformin. She has had a known pre-eclampsia history with previous admission. DISCHARGE DIAGNOSIS: Previous section. Pre-eclampsia with readmission. Now she is in a stable blood pressure monitoring regime with adequate antihypertensives on board. She still is continuing using her Zoloft and using her metformin. She had counseling with dietitian in regards to her diet and prior to discharge we reviewed her medications, which are labetalol and nifedipine. We emphasized the importance of taking them at regular interval time and not missing a pill. She has wrist blood pressure assessment tool at home and we recommended she do her blood pressures 4 times a day, however, the regime is that she needs to sit down, be quiet for about 15 minutes, do her blood pressure. If it is in a severe range blood pressure which is 160/100, she is again to sit down, be quiet for about 15-20 minutes and then repeat the blood pressure. If she has had to severe range blood pressures she needs to call for us to evaluate either increasing the medication or have her return. She is discharged with 200 mg of labetalol three times a day and 30 mg of nifedipine extra strength. Her has gone to the pharmacy to purchase those. On reviewing her vital signs today over the past 24 hours, she has only had one severe range blood pressure this morning of 175/92. However, 15 minutes later it resolved down to a normalized blood pressure 143/74, 142/88. Reviewing her chemistry, all is within normal limit limits. Her magnesium levels were at the therapeutic range when she was on magnesium. The electrolytes were within normal limits. The urine was negative. Her hematology was within normal limits. Her platelets were normal and her glucose was in the normal range for her at 105. PHYSICAL EXAMINATION AT DISCHARGE: She is normocephalic, atraumatic. Neck: Full range of motions. Pupils equal and reactive to light. Her blood pressure presently is 142/87 with a pulse of 78, respirations 18 and temperature 97.6. Her distal pulses are symmetric. No evidence of deep venous thrombosis (DVT), pulmonary embolism (PE) or superficial phlebitis. Chest is clear to the bases. No wheezes or rhonchi. Abdomen is soft. Uterus 2 below. Lochia is moderate. Four quadrant bowel sounds are noted. She has no rashes, lesions or pruritus. No arthralgia or myalgia. No complaints of cough, wheezes, shortness of breath or dyspnea on exertion. No chest pain, not bleeding. Neuro complete. No urgency or frequency. No nausea, vomiting, diarrhea or constipation. SUMMARY: In summary we have a pre-eclampsia with severe range blood pressures being monitored and managed with medication and counseling as well as her diabetes monitored with metformin and diet counseling and her anxiety is under control with Zoloft. The patient was told to call the office for an appointment next week. Followup for blood pressure check and was discharged with medications in stable condition.
== END 2017-05-18 19:00 | disposition home or self-care (01) | DRG 776 ==
LOC: M LDI 02:00 → M OBS 19:04
PROVIDERS: ADMIT Obstetrics & Gynecology; ATTEND Student in an Organized Health Care Education/Training Program
DX: O14.15 Severe pre-eclampsia, complicating the puerperium (principal); O24.13 Pre-existing type 2 diabetes mellitus, in the puerperium; Z79.84 Long term (current) use of oral hypoglycemic drugs; E11.9 Type 2 diabetes mellitus without complications; O99.345 Other mental disorders complicating the puerperium; F32.9 Major depressive disorder, single episode, unspecified

== ENCOUNTER 2018-03-09 11:09 | Emergency (ER) | payer OTHER | END 2018-03-09 13:17 | disposition home or self-care (01) | LOC: M ED 11:09 | DX: R03.0 Elevated blood-pressure reading, without diagnosis of hypertension (principal); F41.9 Anxiety disorder, unspecified; F33.9 Major depressive disorder, recurrent, unspecified; Z79.899 Other long term (current) drug therapy | CPT/HCPCS: 71046 ==

== ENCOUNTER → 2018-04-24 | Outpatient (REF) | payer OTHER | LOC: M SFHCLERA 18:19 | DX: J02.9 Acute pharyngitis, unspecified (principal) ==

== ENCOUNTER 2018-05-21 16:11 | Emergency (ER) | payer OTHER ==
[2018-05-21 17:20] LABS: HEMATOCRIT 40.3 % (36.0-47.0); HEMOGLOBIN 12.9 g/dl (12.0-15.5); MEAN CORPUSCULAR HEMOGLOBIN 26.8 pg (27.0-33.0); MEAN CORPUSCULAR VOLUME 83.6 fl (80.0-96.0); PLATELET COUNT, AUTOMATED 279 10^3/uL (150-450); RED BLOOD COUNT 4.82 10^6/uL (4.00-5.40); RED CELL DISTRIBUTION WIDTH 13.5 % (11.5-14.5); WHITE BLOOD COUNT 10.2 10^3/uL (4.0-10.0)
[2018-05-21 17:36] LABS: AMPHETAMINES LEVEL URINE NEGATIVE (NEGATIVE); BARBITURATES URINE NEGATIVE (NEGATIVE); BENZODIAZEPINES URINE NEGATIVE (NEGATIVE); CANNABINOIDS URINE NEGATIVE (NEGATIVE); COCAINE METABOLITE URINE NEGATIVE (NEGATIVE); METHADONE URINE NEGATIVE (NEGATIVE); OPIATES URINE NEGATIVE (NEGATIVE); PHENCYCLIDINE URINE NEGATIVE (NEGATIVE)
[2018-05-21 17:46] LABS: CONTROL LINE HCG INT CTR LINE PRESENT; HCG, SERUM QUALITATIVE NEGATIVE (NEGATIVE)
[2018-05-21 17:47] LABS: ALBUMIN 3.5 GM/DL (3.2-5.2); ALBUMIN/GLOBULIN RATIO 0.95 (1.00-1.93); ALKALINE PHOSPHATASE 93 U/L (45-117); ALT/SGPT 17 U/L (12-78); ANION GAP 7 MEQ/L (8-16); AST/SGOT 14 U/L (7-37); BILIRUBIN,DIRECT < 0.1 MG/DL (0.0-0.2); BILIRUBIN,TOTAL 0.2 MG/DL (0.2-1.0); BLOOD UREA NITROGEN 16 MG/DL (7-18); CALCIUM LEVEL 8.3 MG/DL (8.5-10.1); CARBON DIOXIDE LEVEL 29 MEQ/L (21-32); CHLORIDE LEVEL 103 MEQ/L (98-107); CREATININE FOR GFR 0.54 MG/DL (0.55-1.30); GLOMERULAR FILTRATION RATE > 60.0 (>60); GLUCOSE, FASTING 135 MG/DL (70-100); SALICYLATE LEVEL < 1.7 MG/DL (5.0-30.0); SODIUM LEVEL 139 MEQ/L (136-145); TOTAL PROTEIN 7.2 GM/DL (6.4-8.2)
[2018-05-21 17:48] LABS: ACETAMINOPHEN LEVEL < 2.0 UG/ML (10.0-30.0); ETHYL ALCOHOL (ETHANOL) < 0.003 % (0.000-0.010)
[2018-05-21] MEDS: metFORMIN (GLUCOPHAGE) 1000 MG TABLET PO (19:49)
== END 2018-05-21 19:53 | disposition home or self-care (01) ==
LOC: M ED 16:11
DX: F33.9 Major depressive disorder, recurrent, unspecified (principal); E11.9 Type 2 diabetes mellitus without complications
CPT/HCPCS: G0480

== ENCOUNTER 2018-06-01 12:06 | Emergency (ER) | payer OTHER ==
[2018-06-01 13:10] LABS: BASO % 0.4 % (0.0-1.0); EOS # 0.3 10^3/uL (0.0-0.50); EOS % 2.8 % (0.0-3.0); HEMATOCRIT 39.2 % (36.0-47.0); HEMOGLOBIN 12.7 g/dl (12.0-15.5); IMMATURE GRANULOCYTE % 0.6 % (0-3.0); LYMPH # 2.6 10^3/uL (1.5-6.5); LYMPH % 28.4 % (24.0-44.0); MEAN CORPUSCULAR HEMOGLOBIN 27.1 pg (27.0-33.0); MEAN CORPUSCULAR HGB CONC 32.4 g/dl (32.0-36.5); MEAN CORPUSCULAR VOLUME 83.6 fl (80.0-96.0); MONO # 0.4 10^3/uL (0.0-0.8); MONO % 4.2 % (0.0-5.0); NEUTROPHILS # 5.9 10^3/uL (1.8-7.7); NEUTROPHILS % 63.6 % (36.0-66.0); PLATELET COUNT, AUTOMATED 265 10^3/uL (150-450); RED BLOOD COUNT 4.69 10^6/uL (4.00-5.40); RED CELL DISTRIBUTION WIDTH 13.4 % (11.5-14.5); WHITE BLOOD COUNT 9.3 10^3/uL (4.0-10.0)
[2018-06-01 13:25] LABS: ANION GAP 7 MEQ/L (8-16); BLOOD UREA NITROGEN 10 MG/DL (7-18); CALCIUM LEVEL 8.2 MG/DL (8.5-10.1); CARBON DIOXIDE LEVEL 28 MEQ/L (21-32); CHLORIDE LEVEL 105 MEQ/L (98-107); GLOMERULAR FILTRATION RATE > 60.0 (>60); GLUCOSE, FASTING 115 MG/DL (70-100); POTASSIUM SERUM 4.1 MEQ/L (3.5-5.1); SODIUM LEVEL 140 MEQ/L (136-145)
[2018-06-01] MEDS: LORazepam 0.5 MG TAB PO (14:57)
== END 2018-06-01 15:47 | disposition home or self-care (01) ==
LOC: M ED 12:06
DX: R06.02 Shortness of breath (principal); F41.9 Anxiety disorder, unspecified; E11.9 Type 2 diabetes mellitus without complications; F31.9 Bipolar disorder, unspecified
CPT/HCPCS: 71046